=== PATIENT | male | born 1985 | race Caucasian/White ===

== ENCOUNTER 2017-06-18 15:41 | Emergency (ER) | payer SELFPAY ==
[2017-06-18] MEDS ORDERED: Ibuprofen 800 MG TAB ONE (16:17)
== END 2017-06-18 16:15 | disposition home or self-care (01) ==
LOC: MADERS 15:41
DX: K40.90 Unilateral inguinal hernia, without obstruction or gangrene, not specified as recurrent (principal); F17.220 Nicotine dependence, chewing tobacco, uncomplicated
CPT/HCPCS: 99283

== ENCOUNTER 2017-08-25 04:09 | Emergency (ER) | payer OTHER, SELFPAY ==
[2017-08-25] MEDS ORDERED: predniSONE 20 MG TAB ONE (04:41)
[2017-08-25] MEDS ORDERED: HYDROcodone/Acetaminophen 5/325 mg Tablet ONE (04:41)
== END 2017-08-25 05:05 | disposition home or self-care (01) ==
LOC: MADERS 04:09
DX: M54.18 Radiculopathy, sacral and sacrococcygeal region (principal); F17.220 Nicotine dependence, chewing tobacco, uncomplicated
CPT/HCPCS: 99283; J7506

== ENCOUNTER 2017-09-10 11:01 | Outpatient (CLI) | payer OTHER ==
--- NOTE | 2017-09-10 12:02 | RAD ---
LUMBAR SPINE THREE VIEWS: History: Acute left sided back pain with sciatica. Comparison: None. FINDINGS: There is a radiopacity within the right lower quadrant of the abdomen of uncertain significance. This may represent a small suture. No acute fracture or malalignment of the lumbar spine. Minimal narrowing L4-5. Small anterior osteoph yte at L5-S1. Pubic symphysis is unremarkable. There are small erosions of the right SI joint. IMPRESSION: 1. No acute abnormality. 2. Erosions on the right SI joint may be sequellae of inflammatory arthropathy or sacroiliitis. POS: [facility]
== END 2017-09-10 11:02 | disposition home or self-care (01) ==
LOC: MADRAD 11:01
PROVIDERS: ATTEND Family Medicine
DX: M54.42 Lumbago with sciatica, left side (principal); M53.3 Sacrococcygeal disorders, not elsewhere classified
CPT/HCPCS: 72100

== ENCOUNTER 2017-12-14 18:54 | Emergency (ER) | payer OTHER | END 2017-12-14 19:25 | disposition home or self-care (01) | LOC: MADERS 18:54 | DX: R10.9 Unspecified abdominal pain (principal); F17.220 Nicotine dependence, chewing tobacco, uncomplicated | CPT/HCPCS: 99283 ==

== ENCOUNTER 2017-12-21 14:49 | Emergency (ER) | payer OTHER ==
[~2017-12-21 14:49] MED LIST: Sodium Chloride 0.9% 1,000 ML BAG ONE
[2017-12-21] MEDS ORDERED: Ketorolac Tromethamine 30 MG/ML VIAL ONE (15:34)
[2017-12-21 15:39] LABS: #Basophils 0.2 thou/uL (0.0-0.2); #Eosinphils 0.3 thou/uL (0.0-0.7); #Lymphocytes 1.3 thou/uL (1.20-3.40); #Monocytes 0.9 thou/uL (0.11-0.59); #Neutrophils 6.7 thou/uL (1.40-6.50); %Eosinophils 3.5 % (0.0-10.0); %Lymphocytes 14.2 % (21.0-51.0); %Monocytes 9.4 % (0.0-10.0); %Neutrophils 70.9 % (42.0-75.0); Hemoglobin 16.3 g/dL (14.0-18.0); Mean Corpuscular HGB CONC 34.2 g/dL (32.0-36.0); Mean Corpuscular Hemoglobin 30.6 pg (27.0-31.0); Mean Corpuscular Volume 89.5 fl (80.0-94.0); Mean Platelet Volume 7.7 fL (7.4-10.4); Platelet Count 276 thou/uL (130-400); RBC Distribution Width 12.2 % (11.5-14.5); Red Blood Cell (RBC) Count 5.32 mill/uL (4.70-6.10); White Blood Cell (WBC) Count 9.4 thou/uL (4.8-10.8)
[2017-12-21 15:53] LABS: ALT (SGPT) 147 U/L (8-55); AST (SGOT) 59 U/L (5-34); Albumin 4.2 g/dL (3.5-5.0); Alkaline Phosphatase 73 U/L (40-150); Anion Gap 16 mmol/L (10-20); BUN (Urea Nitrogen) 9 mg/dL (8.9-20.6); Bilirubin, Total 0.4 mg/dL (0.2-1.2); Calc. Creatinine Clearance 0 mL/min (70-130); Calcium 9.5 mg/dL (7.8-10.44); Carbon Dioxide 23 mmol/L (22-29); Chloride 104 mmol/L (98-107); Estimated GFR-MDRD Greater than 90; Globulin 2.9 g/dL (2.4-3.5); Glucose 110 mg/dL (70-105); Potassium 4.4 mmol/L (3.5-5.1); Protein, Total 7.1 g/dL (6.0-8.3); Sodium 139 mmol/L (136-145)
== END 2017-12-21 18:10 | disposition short-term general hospital (02) ==
LOC: MADERS 14:49
DX: N50.811 Right testicular pain (principal); R00.0 Tachycardia, unspecified; F17.220 Nicotine dependence, chewing tobacco, uncomplicated
CPT/HCPCS: 36415; 80053; 83605; 85025; 87040; 93005; 96361; 96374; J1885; J7050

== ENCOUNTER 2018-04-06 16:37 | Emergency (ER) | payer OTHER, SELFPAY | END 2018-04-06 18:00 | disposition left against medical advice (07) | LOC: MADERS 16:37 | DX: Z53.21 Procedure and treatment not carried out due to patient leaving prior to being seen by health care provider (principal) ==

== ENCOUNTER 2018-05-31 04:46 | Emergency (ER) | payer SELFPAY ==
[2018-05-31 05:44] LABS: #Basophils 0.1 thou/uL (0.0-0.2); #Eosinphils 0.3 thou/uL (0.0-0.7); Mean Corpuscular Volume 92.9 fL (78.0-98.0)
[2018-05-31 05:47] LABS: #Lymphocytes 1.9 thou/uL (1.20-3.40); #Monocytes 0.6 thou/uL (0.11-0.59); #Neutrophils 4.8 thou/uL (1.40-6.50); %Eosinophils 4.4 % (0.0-10.0); %Neutrophils 61.5 % (42.0-75.0); Hemoglobin 15.9 g/dL (14.0-18.0); Mean Corpuscular Hemoglobin 30.7 pg (27.0-31.0); Mean Platelet Volume 7.4 fL (7.4-10.4); Platelet Count 267 thou/uL (130-400); RBC Distribution Width 12.2 % (11.5-14.5); White Blood Cell (WBC) Count 7.8 thou/uL (4.8-10.8)
[2018-05-31] MEDS ORDERED: cefTRIAXone\\ROCEPHIN 2 GM VIAL ONE (05:52)
[2018-05-31] MEDS ORDERED: Morphine 4 MG/ML VIAL ONE (05:52)
[2018-05-31] MEDS ORDERED: Ondansetron HCl/PF 4 MG/2 ML Vial ONE (05:52)
[2018-05-31 06:00] LABS: Prothrombin Time 13.2 SEC (12.0-14.7)
[2018-05-31 06:05] LABS: ALT (SGPT) 156 U/L (8-55); AST (SGOT) 87 U/L (5-34); Albumin 4.5 g/dL (3.5-5.0); Alkaline Phosphatase 89 U/L (40-150); Anion Gap 14 mmol/L (10-20); BUN (Urea Nitrogen) 7 mg/dL (8.9-20.6); Bilirubin, Total 0.8 mg/dL (0.2-1.2); Calc. Creatinine Clearance 0 mL/min (70-130); Calcium 9.8 mg/dL (7.8-10.44); Carbon Dioxide 27 mmol/L (22-29); Chloride 101 mmol/L (98-107); Estimated GFR-MDRD Greater than 90; Globulin 3.4 g/dL (2.4-3.5); Glucose 101 mg/dL (70-105); PTT 31.4 SEC (22.9-36.1); Potassium 4.1 mmol/L (3.5-5.1); Protein, Total 7.9 g/dL (6.0-8.3); Sodium 138 mmol/L (136-145)
[2018-05-31] MEDS ORDERED: Sodium Chloride 0.9% 1,000 ML BAG ONE (07:49)
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
== END 2018-05-31 07:40 | disposition home or self-care (01) ==
LOC: MADERS 04:46
DX: S05.11XA Contusion of eyeball and orbital tissues, right eye, initial encounter (principal); F17.220 Nicotine dependence, chewing tobacco, uncomplicated; W22.8XXA Striking against or struck by other objects, initial encounter
CPT/HCPCS: 70450; 70486; 80053; 85025; 85610; 85730; 96361; 96374; 96375; J0696; J2270; J2405; J7050